=== PATIENT | male | born 1975 | race Caucasian/White ===

== ENCOUNTER 2016-12-30 10:45 | Emergency (ER) | payer OTHER ==
--- NOTE | ~2016-12-30 | CT57 ---
[facility] A Service of [facility] & [facility] / [facility] RADIOLOGY TEXT RESULTS PATIENT: MIKE HERMOSILLO JR LOCATION: SED : 71 UNIT #: [id number] AGE: [address]: ANTWON FISHMAN SEX: M ORDER DR: [id number] [place] [id number] E MR#: [id number] Acc #: [id number] NAME: MIKE HERMOSILLO JR : 1975 SEX: M STUDY DATE/TIME: 12/30/2016 11:54 UNIT: SED ROOM: STUDY DESCRIPTION: CT Chest Wo Cont Attending Physician: Antwon Fishman Ordering Physician: Antwon Fishman Primary Care Physician: Michelle Santana M.D. MEDICAL IMAGING REPORT This report is preliminary unless electronic signature is present. EXAM CT chest without IV contrast COMPARISON Two views of the chest dated October 23, 2015 INDICATIONS 41-year-old male with complaint of a hard candy stuck in his throat today. The CT exam was performed with one or more of the following radiation dose reduction techniques: automatic exposure control, adjustment of mA and/or kV according to patient size, and iterative reconstruction. FINDINGS Axial CT imaging of the chest was performed. Coronal and sagittal reformats were constructed. Lack of IV contrast limits evaluation of adenopathy, vasculature and viscera. No acute fractures or suspicious osseous lesions. Nonspecific vacuum phenomenon noted at the glenohumeral joints. Visualized airways are widely patent. No evidence of esophageal foreign body on this exam. Please note that evaluation for nonradiopaque foreign body is limited with CT and radiography but the esophagus appears to be mildly gas-distended throughout and I can exclude a significant obstructing foreign body. No hiatal hernia. Diverticulosis of the hepatic flexure of the colon without evidence of acute diverticulitis. No evidence of adenopathy. Normal heart size. Normal caliber of the pulmonary artery and thoracic aorta. No pneumothorax, pleural effusion or pneumonia. Calcified granuloma in the right lower lobe. IMPRESSION 1. No evidence of foreign body within the esophagus or airway. 2. Diverticulosis of the hepatic flexure of the colon without findings of acute diverticulitis. No acute findings in the chest or imaged upper abdomen. STS. [facility] A Service of [facility] & [facility] / [facility] RADIOLOGY TEXT RESULTS PATIENT: MIKE HERMOSILLO JR [place] [facility] [place] [birth year] UNIT #: [id number] AGE: [address]: ANTWON FISHMAN SEX: M ORDER DR: Dictated by... Alan Morales M.D. THIS IS AN ELECTRONICALLY VERIFIED REPORT Alan Morales M.D. at 01/06/2017 12:22 PM FAITH/evangelina TD: 12/30/2016 15:34 JOB #: [id number] MEDICAL IMAGING REPORT Page 1 of 1
[~2016-12-30 10:45] MED LIST: ALBUTEROL20 ml INH; DELTASONE20 MG PO; KEFLEX PO; KETOPROFEN PO; LEVAQUIN750 M1 PO; MEDROL PO; NORCO 7.5-3251 EACH PO; TUSSIONEX PENN480 ML PO; ULTRAM PO
[2016-12-30 11:24] LABS: BASOPHIL% 0.5 % (0-2.5); EOSINOPHIL# 0.1 X10e3 (0-0.7); EOSINOPHIL% 1.5 % (0.0-7.0); HEMATOCRIT 44.2 % (38.0-50.0); HEMOGLOBIN 14.7 gm/dL (13.0-16.0); LYMPHOCYTE# 2.5 X10e3 (1.0-3.5); LYMPHOCYTE% 34.7 % (17.0-45.0); MEAN CORPUSCULAR HEMOGLOBIN 31.4 PG (28-34); MEAN CORPUSCULAR HGB CONC 33.4 g/dL (30-36); MEAN PLATELET VOLUME 7.5 FL (6.5-11.5); MONOCYTE# 0.4 X10e3 (0-1.0); MONOCYTE% 5.9 % (3.0-12.0); NEUTROPHIL# 4.1 X10e3 (1.5-7.1); NEUTROPHIL% 57.4 % (40-75); PLATELET COUNT 224 X10e3 (140-420); RED CELL DISTRIBUTION WIDTH 13.8 % (11.0-15.5); WHITE BLOOD COUNT 7.2 X10e3 (4.0-10.5)
[2016-12-30 11:26] LABS: DIFF IND NO
[2016-12-30 11:41] LABS: ALBUMIN SERUM 4.2 g/dL (3.5-5.0); BILIRUBIN,TOTAL 0.4 mg/dL (0.2-2.0); BUN/CREATININE RATIO 10.83; CALCIUM SERUM 9.4 mg/dL (8.4-10.2); CREATININE SERUM 1.2 mg/dL (0.6-1.4); GLOM FILT RATE Estimated 73.6 mL/min (>60); POTASSIUM 3.9 mmol/L (3.5-5.1); PROTEIN TOTAL SERUM 7.1 g/dL (6.0-8.3)
== END 2016-12-30 13:42 | disposition home or self-care (01) ==
LOC: SED 10:45
PROVIDERS: Nurse Practitioner
DX: K21.9 Gastro-esophageal reflux disease without esophagitis (principal); F17.210 Nicotine dependence, cigarettes, uncomplicated
CPT/HCPCS: 36415; 71250; 80053; 85025; 96374; 96375; 99284; C9113; J2405; J2765